=== PATIENT | female | born 1990 | race Caucasian/White ===

== ENCOUNTER 2022-06-24 11:16 | Emergency (ER) | payer MEDICAID | END 2022-06-24 12:09 | disposition home or self-care (01) | LOC: MW.ED 11:16 | DX: J02.9 Acute pharyngitis, unspecified (principal); Z88.6 Allergy status to analgesic agent | CPT/HCPCS: 99282 ==

== ENCOUNTER 2022-12-17 06:51 | Inpatient (IN) | payer MEDICAID ==
[2022-12-17] MEDS ORDERED: Butorphanol 1 MG/ML SDV IVPUSH PRN (13:22)
[2022-12-17] MEDS ORDERED: Sodium Chloride 0.9% 20 ML SDV IV PRN (13:22)
[2022-12-17] MEDS ORDERED: Ondansetron 4 MG/2 ML SDV IVPUSH PRN (13:22)
[2022-12-17] MEDS ORDERED: Sodium Chloride 0.9% 10 ML Syringe FLUSH PRN (13:22)
[2022-12-17] MEDS ORDERED: Methylergonovine 0.2 MG/1 ML Amp IM PRN (13:22)
[2022-12-17] MEDS ORDERED: Water For Irrigation,Sterile 1,000 ML Container IRR PRN (13:22)
[2022-12-17] MEDS ORDERED: Misoprostol 200 MCG Tab PO PRN (13:22)
[2022-12-17] MEDS ORDERED: Terbutaline 1 MG/ML SDV SUBCUT PRN (13:22)
[2022-12-17] MEDS ORDERED: Carboprost Tromethamine 250 MCG/1 mL Vial IM PRN (13:22)
[2022-12-17] MEDS ORDERED: Lidocaine 1% 50 ML MDV INJECT PRN (13:22)
[2022-12-17] MEDS ORDERED: Tranexamic Acid 1,000 MG in Sodium Chloride 0.9% 100 ML IV PRN (13:22)
[2022-12-17] MEDS ORDERED: Sodium Chloride 0.9% 2.5 ML Syringe FLUSH PRN (13:22)
[2022-12-17] MEDS ORDERED: Oxytocin/0.9 % Sodium Chloride 30 UNIT/500 ML BAG IV SCH ×2 (13:30)
[2022-12-17] MEDS: Lactated Ringers 1,000 ML IV SCH ×2 (14:12→22:34)
[2022-12-17 14:38] LABS: HEMATOCRIT 40.8 % (36.0-46.0); HEMOGLOBIN 13.8 g/dL (12.0-16.0); MEAN CORPUSCULAR HEMOGLOBIN 30.5 pg (27.0-32.0); MEAN CORPUSCULAR HGB CONC 33.8 g/dL (31.0-37.0); MEAN CORPUSCULAR VOLUME 90.3 fL (80.0-98.0); MEAN PLATELET VOLUME 10.3 fL (7.40-12.00); RED BLOOD CELL COUNT 4.52 M/uL (4.30-5.90); WHITE BLOOD CELL COUNT,WBC 8.29 K/uL (4.0-11.0)
[2022-12-17] MEDS ORDERED: ePHEDrine 50 MG/ML SDV IVPUSH PRN ×2 (14:40)
[2022-12-17] MEDS ORDERED: Phenylephrine HCl 0.5 MG/5 ML AMP IVPUSH PRN (14:40)
[2022-12-17] MEDS ORDERED: Ropivacaine HCl/PF 400 MG in Premix Bag 1 BAG EPIDUR SCH (14:45)
[2022-12-17] MEDS ORDERED: Dexmedetomidine 200 MCG/2 ML SDV ONE (19:01)
[2022-12-18] MEDS: Lactated Ringers 1,000 ML IV SCH (05:36)
[2022-12-18] MEDS ORDERED: Acetaminophen 500 MG Tab PO PRN (07:55)
[2022-12-18] MEDS ORDERED: Tranexamic Acid 1,000 MG in Sodium Chloride 0.9% 100 ML IV PRN (07:55)
[2022-12-18] MEDS ORDERED: Ibuprofen 400 MG Tab PO PRN (07:55)
[2022-12-18] MEDS ORDERED: Witch Hazel Medicated Pads 40/Jar TOP PRN (07:55)
[2022-12-18] MEDS ORDERED: Lanolin 100% Cream 7 GM Tube TOP PRN (07:55)
[2022-12-18] MEDS ORDERED: Methylergonovine 0.2 MG/1 ML Amp IM PRN (07:55)
[2022-12-18] MEDS ORDERED: Bisacodyl 10 MG Supp RECTAL PRN (07:55)
[2022-12-18] MEDS ORDERED: Docusate Sodium 100 MG Cap PO PRN (07:55)
[2022-12-18] MEDS ORDERED: Benzocaine/Menthol 20%-0.5% Spray 78 GM Cannister TOP PRN (07:55)
[2022-12-18 08:07] LABS: PH,UMBILICAL ARTERIAL 7.176 (7.18-7.38); PH,UMBILICAL VENOUS 7.208 (7.25-7.45)
[2022-12-18] MEDS: Prenatal Multivitamin with Calcium/Folic Acid/Iron Tab PO SCH (10:17)
[2022-12-18] MEDS: Acetaminophen 500 MG Tab PO PRN ×3 (10:18→22:07)
[2022-12-18] MEDS: Ibuprofen 800 MG Tab PO PRN ×2 (15:31→22:06)
[2022-12-19 06:16] LABS: HEMATOCRIT 41.3 % (36.0-46.0)
[2022-12-19] MEDS: Ibuprofen 800 MG Tab PO PRN (07:39)
[2022-12-19] MEDS: Acetaminophen 500 MG Tab PO PRN (07:40)
[2022-12-19] MEDS: Prenatal Multivitamin with Calcium/Folic Acid/Iron Tab PO SCH (08:12)
== END 2022-12-19 11:04 | disposition home or self-care (01) | DRG 806 ==
LOC: MW.OB 06:51 → OBSVTOIN 12-18 06:51 → MW.OB 12-18 17:58
PROVIDERS: ADMIT Obstetrics & Gynecology; ATTEND Obstetrics & Gynecology
PROC: 10E0XZZ Delivery of Products of Conception, External Approach (ICD-10-PCS; principal; 2022-12-18)
PROC: 3E033VJ Introduction of Other Hormone into Peripheral Vein, Percutaneous Approach (ICD-10-PCS; 2022-12-18)
PROC: 3E0R3BZ Introduction of Anesthetic Agent into Spinal Canal, Percutaneous Approach (ICD-10-PCS; 2022-12-18)
PROC: 00HU33Z Insertion of Infusion Device into Spinal Canal, Percutaneous Approach (ICD-10-PCS; 2022-12-18)
PROC: 10907ZC Drainage of Amniotic Fluid, Therapeutic from Products of Conception, Via Natural or Artificial Opening (ICD-10-PCS; 2022-12-18)
DX: O45.93 Premature separation of placenta, unspecified, third trimester (principal); O98.32 Other infections with a predominantly sexual mode of transmission complicating childbirth; Z37.0 Single live birth; A60.00 Herpesviral infection of urogenital system, unspecified; Z3A.39 39 weeks gestation of pregnancy
CPT/HCPCS: 36415; 51702; 59025; 59409; 82803; 85014; 85018; 85027; 86592; 86850; 86900; 86901; A9270-GY; J2590; J3490; J7120